=== PATIENT | female | born 1970 | race Caucasian/White ===

== ENCOUNTER 2016-12-15 11:12 | Emergency (ER) | payer BC, OTHER ==
[~2016-12-15] VITALS: Ht 160 cm; Wt 66.4 kg
[2016-12-15] MEDS ORDERED: NAPR500T3 PO (11:27)
[2016-12-15] MEDS ORDERED: ADVI200C5 PO (11:27)
[2016-12-15] MEDS ORDERED: NORCO, ANEXSIA 5/325MG TABLET (HYDROcodone/ACETAMINOPHEN) PO ONE (11:45)
[2016-12-15] MEDS ORDERED: TETANUS/DIPHTHERIA TOX ADSORB ADULT 0.5ML SYR/VIAL (90714) IM ONE (12:00)
--- NOTE | 2016-12-15 12:53 | REP ---
RIGHT LOWER EXTREMITY DUPLEX VEINS: HISTORY: Right leg pain. There are no filling defects in the deep venous system. The deep venous system is patent. IMPRESSION: There is no deep venous thrombosis. Signed by Austyn John MD 12/15/2016 12:55 P
--- NOTE | 2016-12-15 12:54 | REP ---
AP PELVIS, ONE VIEW: HISTORY: Pain. There is no acute fracture or dislocation. The joint spaces are normal in appearance. IMPRESSION: There is no acute fracture or dislocation. Signed by Austyn John MD 12/15/2016 12:55 P
--- NOTE | 2016-12-15 12:54 | REP ---
RIGHT FEMUR, FOUR VIEWS: HISTORY: Pain. There is no acute fracture or dislocation. The joint spaces are normal in appearance. IMPRESSION: There is no acute fracture or dislocation. Signed by Austyn John MD 12/15/2016 12:55 P
--- NOTE | 2016-12-15 12:56 | REP ---
RIGHT FOOT, FOUR VIEWS: HISTORY: Fall. There is no acute fracture or dislocation. The joint spaces are normal in appearance. IMPRESSION: There is no acute fracture or dislocation. Signed by Austyn John MD 12/15/2016 01:28 P
--- NOTE | 2016-12-15 12:56 | REP ---
RIGHT TIBIA/FIBULA, FOUR VIEWS: HISTORY: Fall. There is no acute fracture or dislocation. The joint spaces are normal in appearance. IMPRESSION: There is no acute fracture or dislocation. Signed by Austyn John MD 12/15/2016 01:28 P
[2016-12-15 13:04] LABS: WHITE BLOOD COUNT 5.1 K/mm3 (4.0-10.0)
[2016-12-15 13:05] LABS: BASO % 0.6 % (0.0-1.0); EOS % 0.8 % (0.0-3.0); LARGE UNSTAINED CELL # 0.1 K/mm3 (0.0-0.4); LARGE UNSTAINED CELL % 1.8 % (0.0-4.0); LYMPH # 1.4 K/mm3 (1.5-4.5); MEAN CORPUSCULAR HEMOGLOBIN 28.8 pg (27.0-33.0); MEAN CORPUSCULAR HGB CONC 32.6 g/dl (32.0-36.5); MEAN CORPUSCULAR VOLUME 88.3 fl (80.0-96.0); MONO # 0.3 K/mm3 (0.0-0.8); MONO % 5.5 % (0.0-5.0); NEUTROPHILS # 3.3 K/mm3 (1.8-7.7); NEUTROPHILS % 65.3 % (36.0-66.0); PLATELET COUNT, AUTOMATED 319 k/mm3 (150-450); RED CELL DISTRIBUTION WIDTH 12.5 % (11.5-14.5)
[2016-12-15 13:10] LABS: INR 0.94
[2016-12-15 13:45] LABS: ALBUMIN 3.6 GM/DL (3.2-5.2); ALBUMIN/GLOBULIN RATIO 1.06 (1.00-1.93); ALKALINE PHOSPHATASE 76 U/L (45-117); ALT/SGPT 31 U/L (12-78); ANION GAP 10 MEQ/L (8-16); AST/SGOT 22 U/L (15-37); BILIRUBIN,DIRECT < 0.1 MG/DL (0.0-0.2); BILIRUBIN,TOTAL 0.3 MG/DL (0.2-1.0); BLOOD UREA NITROGEN 12 MG/DL (7-18); CALCIUM LEVEL 8.7 MG/DL (8.5-10.1); CARBON DIOXIDE LEVEL 26 MEQ/L (21-32); CHLORIDE LEVEL 109 MEQ/L (98-107); CREATININE FOR GFR 0.44 MG/DL (0.55-1.02); GLOMERULAR FILTRATION RATE > 60.0 (>58); GLUCOSE, FASTING 88 MG/DL (70-105); SODIUM LEVEL 145 MEQ/L (136-145)
[2016-12-15] MEDS ORDERED: NORCOTAB PO (14:34)
[2016-12-15 14:42] VITALS: BP 119/78
== END 2016-12-15 14:47 | disposition home or self-care (01) ==
LOC: M ED 11:12
DX: S76.111A Strain of right quadriceps muscle, fascia and tendon, initial encounter (principal); X58.XXXA Exposure to other specified factors, initial encounter; Y92.89 Other specified places as the place of occurrence of the external cause; Y93.89 Activity, other specified; Y99.9 Unspecified external cause status